=== PATIENT | female | born 1985 ===

== ENCOUNTER → 2021-08-23 | Outpatient (CLI) | payer OTHER | LOC: LAB SHORT 08:30 | PROVIDERS: Family Medicine | DX: Z01.419 Encounter for gynecological examination (general) (routine) without abnormal findings (principal) | CPT/HCPCS: G0145 ==

== ENCOUNTER → 2023-10-02 | Outpatient (CLI) | payer OTHER ==
[2023-10-02 11:13] LABS: Source, Urine Clean Catch
[2023-10-02 13:34] LABS: Appearance, Urine Hazy (Clear); Bilirubin, Urine Neg (Neg); Blood, Urine 3+ (Neg); Color, Urine Yellow (P-Yellow); Glucose Qualitative, Urine Neg (Neg); Ketones, Urine Neg (Neg); Leukocyte Esterase, Urine 3+ (Neg); Nitrite, Urine Neg (Neg); Protein, Urine 1+ (Neg); Urobilinogen, Urine NORM (Normal)
[2023-10-02 14:10] LABS: Bacteria Many /hpf; Squamous Epithelial Cells Mod /hpf (Few); White Blood Cells, Urine 25-50 /hpf (0-5)
[2023-10-02 14:11] LABS: Amorphous Light (0-Heavy); Transitional Epithelial Cells Rare /hpf (0-Rare)
== END | disposition home or self-care (01) ==
LOC: LAB SHORT 11:11 → LAB 11:11
PROVIDERS: Obstetrics & Gynecology
DX: R30.0 Dysuria (principal); Z87.440 Personal history of urinary (tract) infections
CPT/HCPCS: 81001; 87086

== ENCOUNTER → 2023-10-11 | Outpatient (CLI) | payer OTHER | LOC: LAB 12:50 → LAB SHORT 12:50 | DX: N76.0 Acute vaginitis (principal); R30.0 Dysuria ==

== ENCOUNTER → 2024-01-31 | Outpatient (CLI) | payer OTHER ==
[2024-01-31 19:55] LABS: Bacterial Vaginosis PCR Negative (NEGATIVE); Candida Group, PCR NOT DETECTED (NOT DETECT); Candida glabrata-krusei, PCR NOT DETECTED (NOT DETECT)
== END ==
LOC: LAB SHORT 15:44 → LAB 15:44
PROVIDERS: Obstetrics & Gynecology
DX: N76.0 Acute vaginitis (principal)
CPT/HCPCS: 87481; 87661; 87801

== ENCOUNTER 2024-03-19 12:00 | Inpatient (IN) | payer OTHER ==
[~2024-03-19] VITALS: Ht 165.1 cm; Wt 81.6 kg
[2024-03-19] VITALS (9 sets, daily range): BP systolic 112–133; BP diastolic 64–79
[2024-03-19] MEDS ORDERED: Tranexamic Acid 100 ML IV SCH (12:10)
[2024-03-19] MEDS ORDERED: Oxytocin 10 Unit / ML Vial IM PRN (12:10)
[2024-03-19] MEDS ORDERED: Acetaminophen 500 MG Tab PO PRN (12:10)
[2024-03-19] MEDS ORDERED: Misoprostol 200 MCG Tab PR PRN (12:10)
[2024-03-19] MEDS ORDERED: OXYTOCIN/RINGER'S LACTATE 500 ML IV PRN (12:10)
[2024-03-19] MEDS ORDERED: Carboprost Tromethamine 250 MCG/ML 1ML Amp IM PRN (12:10)
[2024-03-19] MEDS ORDERED: Methylergonovine Maleate 0.2MG / ML 1ML Amp IM PRN (12:10)
[2024-03-19] MEDS ORDERED: Misoprostol 200 MCG Tab BC PRN (12:10)
[2024-03-19] MEDS ORDERED: Penicillin G Potassium 5,000,000 UNITS in NS 250 ML IV ONE (12:10)
[2024-03-19] MEDS ORDERED: Lactated Ringer's 1,000 ML IV PRN (12:10)
[2024-03-19] MEDS ORDERED: ePHEDrine Sulfate 50 MG/ML 1ML Injection XX PRN (12:10)
[2024-03-19] MEDS ORDERED: Ondansetron HCl 2 MG / ML 2ML Vial IV PRN ×2 (12:10→15:05)
[2024-03-19] MEDS ORDERED: FentaNYL 2mcg/ml-Bup 0.1% Epd 250 ML EPI PRN (12:10)
[2024-03-19] MEDS ORDERED: Lactated Ringer's 1,000 ML IV SCH ×2 (12:10)
[2024-03-19] MEDS ORDERED: Calcium Carbonate 500 MG Tab Chew PO SCH (12:15)
[2024-03-19] MEDS ORDERED: OXYTOCIN/RINGER'S LACTATE 500 ML IV SCH (12:15)
[2024-03-19 12:55] LABS: BASOPHILS ABSOLUTE AUTO 0.04 K/mm3 (0.00-0.23); BASOPHILS PERCENT AUTO 1 % (0-2); EOSINOPHILS ABSOLUTE AUTO 0.05 K/mm3 (0.00-0.68); EOSINOPHILS PERCENT AUTO 1 % (0-6); Hematocrit 37.4 % (33.0-51.0); Hemoglobin 13.4 g/dL (11.5-16.0); IMMATURE GRAN ABSOLUTE AUTO 0.05 K/mm3 (0.00-0.10); IMMATURE GRAN PERCENT AUTO 1 % (0-1); LYMPHOCYTES ABSOLUTE AUTO 1.78 K/mm3 (0.84-5.20); LYMPHOCYTES PERCENT AUTO 23 % (21-46); MONOCYTES ABSOLUTE AUTO 0.65 K/mm3 (0.16-1.47); MONOCYTES PERCENT AUTO 8 % (4-13); Mean Corpuscular HGB 32.1 pg (26.0-34.0); Mean Corpuscular HGB Conc 35.8 g/dL (31.5-36.5); Mean Corpuscular Volume 90 fL (80-100); Mean Platelet Volume 11.7 fL (9.1-12.4); NEUTROPHILS ABSOLUTE AUTO 5.17 K/mm3 (1.96-9.15); NEUTROPHILS PERCENT AUTO 67 % (41-73); Platelet Count 164 K/mm3 (150-400); RDW Coefficient Variation 12.8 % (11.7-14.2); RDW Standard Deviation 41.8 fL (35.1-46.3); Red Blood Cell Count 4.17 M/mm3 (3.80-5.20); White Blood Cell Count 7.74 K/mm3 (4.00-11.30)
[2024-03-19] MEDS ORDERED: PRENATAL TABLE1 EAC2 PO (13:13)
[2024-03-19] MEDS ORDERED: FentaNYL Citrate 50 MCG/ML 2 ML Injection IV PRN (15:05)
[2024-03-19] MEDS ORDERED: Penicillin G Potassium 2,500,000 UNITS in Dextrose 5% 100 ML IV SCH ×2 (16:00→22:30)
[2024-03-19] MEDS ORDERED: Calcium Carbonate 500 MG Tab Chew PO PRN (21:00)
[2024-03-20] VITALS (76 sets, daily range): BP systolic 94–146; BP diastolic 50–83
[2024-03-20] MEDS ORDERED: Lidocaine HCl 1% 30 ML SDV ONE (08:03)
[2024-03-20] MEDS ORDERED: EpiNEPhrine 1 MG/1 ML 1ML Vial ONE (08:03)
[2024-03-20] MEDS ORDERED: Bupivacaine HCl 0.25% 30 ML Injection ONE (08:03)
--- NOTE | 2024-03-20 13:42 | NUR ---
pt had to have 3rd anesthesiologist come in to get pain relief. dr parks in to replaced epidural after dr narayan dosed initial epidural up multiple times. pump, tubing, connector and all systems changed. kindra is now comfortable with working epidural
[2024-03-20] MEDS ORDERED: Promethazine HCl 25 MG Tab PO ONE (17:10)
[2024-03-20] MEDS ORDERED: DiphenhydrAMINE HCl 50 MG/ML 1ML Vial IV ONE (21:00)
[2024-03-20] MEDS ORDERED: Famotidine 10 MG/ML 2ML Vial IV ONE (21:05)
[2024-03-20] MEDS ORDERED: Azithromycin 500 MG in NS 250 ML IV SCH ×2 (23:10→23:20)
[2024-03-20] MEDS ORDERED: Lactated Ringer's 1,000 ML IV SCH (23:10)
[2024-03-20] MEDS ORDERED: CeFAZolin Sodium 2,000 MG in NS 100 ML IV SCH (23:10)
[2024-03-20] MEDS ORDERED: Metoclopramide HCl 5MG / ML 2ML Vial IV SCH (23:15)
[2024-03-20] MEDS ORDERED: Citric Acid/Sodium Citrate 30 ML BTL PO SCH (23:15)
[2024-03-20] MEDS ORDERED: FentaNYL Citrate 50 MCG/ML 2 ML Injection ONE (23:31)
[2024-03-20] MEDS ORDERED: Lidocaine 2%-Epineph 1:200000 20 ML SDV ONE (23:31)
[2024-03-20] MEDS ORDERED: Morphine Sulfate/PF 1 MG/ML 10MLVIAL ONE (23:31)
[2024-03-21] VITALS (10 sets, daily range): BP systolic 94–130; BP diastolic 56–63
--- NOTE | 2024-03-21 00:22 | NUR ---
03/21/24 0022 Akash Long NO CORD SENT PER DR. FAIRCHILD. CORD BLOOD SENT WITH BABY RN
[2024-03-21] MEDS ORDERED: Ketorolac Tromethamine 30mg Vial ONE (00:49)
[2024-03-21] MEDS ORDERED: Oxytocin 10 Unit / ML Vial ONE (00:49)
[2024-03-21] MEDS ORDERED: Ondansetron HCl 2 MG / ML 2ML Vial ONE (00:49)
[2024-03-21] MEDS ORDERED: Dexamethasone Sod Phos 10 MG/ML 1ML VIAL ONE (00:49)
[2024-03-21] MEDS ORDERED: Polyethylene Glycol 3350 17 gm PO PRN (00:50)
[2024-03-21] MEDS ORDERED: OxyCODONE HCL 5 MG TAB PO PRN ×2 (00:50→00:55)
[2024-03-21] MEDS ORDERED: Ondansetron HCl 2 MG / ML 2ML Vial IV PRN (00:55)
[2024-03-21] MEDS ORDERED: Magnesium Hydroxide Conc 10 ML UDC PO PRN (00:55)
[2024-03-21] MEDS ORDERED: OXYTOCIN/RINGER'S LACTATE 16.66666666 ML IV SCH (00:55)
[2024-03-21] MEDS ORDERED: Lanolin Cream TOP PRN (00:55)
[2024-03-21] MEDS ORDERED: Simethicone 80 MG Chew PO PRN (01:00)
[2024-03-21] MEDS ORDERED: Promethazine HCl 25 MG Tab PO PRN (01:00)
[2024-03-21] MEDS ORDERED: Rho(D) Immune Globulin 300 MCG / SYR IM ONE (01:00)
[2024-03-21] MEDS ORDERED: Ketorolac Tromethamine 30mg Vial IV SCH (01:00)
[2024-03-21] MEDS ORDERED: Measles/Mumps/Rubella Vaccine 0.5 ML Vial SC ONE (01:00)
[2024-03-21] MEDS ORDERED: Acetaminophen 500 MG Tab PO PRN (01:00)
[2024-03-21] MEDS ORDERED: Witch Hazel/Glycerin PADS TOP PRN (01:05)
[2024-03-21] MEDS ORDERED: FLU VACC TS2024-25(6MOS UP)/PF 45 MCG/0.5 ML SYRINGE IM ONE (01:05)
[2024-03-21] MEDS ORDERED: Benzocaine Topical Anesthetic Spray 60GM TOP PRN (01:05)
--- NOTE | 2024-03-21 02:34 | NUR ---
FUNDAL RUB AT 0145 AND 0215 SKIPPED FOR MATERNAL BONDING
[2024-03-21 06:38] LABS: BASOPHILS ABSOLUTE AUTO 0.04 K/mm3 (0.00-0.23); BASOPHILS PERCENT AUTO 0 % (0-2); EOSINOPHILS ABSOLUTE AUTO 0.15 K/mm3 (0.00-0.68); EOSINOPHILS PERCENT AUTO 1 % (0-6); Hemoglobin 10.2 g/dL (11.5-16.0); IMMATURE GRAN ABSOLUTE AUTO 0.13 K/mm3 (0.00-0.10); IMMATURE GRAN PERCENT AUTO 1 % (0-1); LYMPHOCYTES ABSOLUTE AUTO 0.85 K/mm3 (0.84-5.20); LYMPHOCYTES PERCENT AUTO 5 % (21-46); MONOCYTES ABSOLUTE AUTO 0.94 K/mm3 (0.16-1.47); MONOCYTES PERCENT AUTO 5 % (4-13); Mean Corpuscular HGB 31.8 pg (26.0-34.0); Mean Corpuscular HGB Conc 35.2 g/dL (31.5-36.5); Mean Corpuscular Volume 90 fL (80-100); Mean Platelet Volume 11.7 fL (9.1-12.4); NEUTROPHILS ABSOLUTE AUTO 16.16 K/mm3 (1.96-9.15); NEUTROPHILS PERCENT AUTO 89 % (41-73); Platelet Count 148 K/mm3 (150-400); RDW Coefficient Variation 12.8 % (11.7-14.2); RDW Standard Deviation 42.5 fL (35.1-46.3); Red Blood Cell Count 3.21 M/mm3 (3.80-5.20); White Blood Cell Count 18.27 K/mm3 (4.00-11.30)
[2024-03-21] MEDS ORDERED: Ibuprofen 400 MG Tab PO SCH (08:00)
[2024-03-21] MEDS ORDERED: Prenatal Vit/FE Fumarate/FA 1 Tab PO SCH (09:00)
[2024-03-21] MEDS ORDERED: Loratadine 10 MG Tab PO ONE (12:20)
[2024-03-22 00:49] VITALS: BP 111/57
[2024-03-22 05:28] VITALS: BP 95/52
[2024-03-22 09:09] VITALS: BP 122/60
[2024-03-22] MEDS ORDERED: OXYC5 PO (11:40)
[2024-03-22] MEDS ORDERED: ACET500 PO (11:40)
[2024-03-22] MEDS ORDERED: IBUP800 PO (11:40)
[2024-03-22 11:47] VITALS: BP 128/74
== END 2024-03-22 12:15 | disposition home or self-care (01) | DRG 788 ==
LOC: OBS 12:00 → BC 12:05 → OBS 12:12 → BC 12:13
PROVIDERS: Family Medicine; ADMIT Obstetrics & Gynecology
PROC: 10D00Z1 Extraction of Products of Conception, Low, Open Approach (ICD-10-PCS; principal; 2024-03-21)
PROC: 0U7C0ZZ Dilation of Cervix, Open Approach (ICD-10-PCS; 2024-03-21)
DX: O41.03X0 Oligohydramnios, third trimester, not applicable or unspecified (principal); Z3A.40 40 weeks gestation of pregnancy; Z37.0 Single live birth; O99.824 Streptococcus B carrier state complicating childbirth; O64.0XX0 Obstructed labor due to incomplete rotation of fetal head, not applicable or unspecified; O99.214 Obesity complicating childbirth; O48.0 Post-term pregnancy
CPT/HCPCS: 36415; 51702; 59200; 85025; 86850; 86900; 86901; 86923; A9270; J0171; J0456; J0690; J1100; J1200; J1885; J2274; J2405; J2540; J2590; J3010; J7050; J7120

== ENCOUNTER 2025-03-12 16:32 | Emergency (ER) | payer OTHER ==
[~2025-03-12] VITALS: Ht 165.1 cm; Wt 63.5 kg
[~2025-03-12 16:32] MED LIST: ACET500 PO; IBUP800 PO; OXYC5 PO; PRENATAL TABLE1 EAC2 PO
[2025-03-12 16:40] VITALS: BP 128/92
[2025-03-12 17:06] LABS: BASOPHILS ABSOLUTE AUTO 0.02 K/mm3 (0.00-0.23); BASOPHILS PERCENT AUTO 0 % (0-2); EOSINOPHILS ABSOLUTE AUTO 0.08 K/mm3 (0.00-0.68); EOSINOPHILS PERCENT AUTO 1 % (0-6); Hematocrit 41.1 % (33.0-51.0); Hemoglobin 14.1 g/dL (11.5-16.0); IMMATURE GRAN ABSOLUTE AUTO 0.02 K/mm3 (0.00-0.10); IMMATURE GRAN PERCENT AUTO 0 % (0-1); LYMPHOCYTES ABSOLUTE AUTO 2.41 K/mm3 (0.84-5.20); LYMPHOCYTES PERCENT AUTO 27 % (21-46); MONOCYTES ABSOLUTE AUTO 0.63 K/mm3 (0.16-1.47); MONOCYTES PERCENT AUTO 7 % (4-13); Mean Corpuscular HGB Conc 34.3 g/dL (31.5-36.5); Mean Corpuscular Volume 89 fL (80-100); NEUTROPHILS ABSOLUTE AUTO 5.64 K/mm3 (1.96-9.15); NEUTROPHILS PERCENT AUTO 64 % (41-73); NRBC ABSOLUTE 0.00 K/mm3 (0.00-0.02); NRBC Auto 0.0 /100 WBC (0.0-0.2); Platelet Count 235 K/mm3 (150-400); RDW Coefficient Variation 12.4 % (11.7-14.2); RDW Standard Deviation 40.0 fL (35.1-46.3)
[2025-03-12 17:23] LABS: Alanine Aminotransfer (ALT/SGP 23.0 U/L (12-78); Albumin, Blood 4.4 g/dL (3.4-5.0); Albumin/Globulin Ratio 1.3 (0.8-1.8); Anion Gap 10.0 mmol/L (3-11); Aspartate Aminotrans (AST/SGOT 16.0 U/L (12-37); Bilirubin, Total 0.3 mg/dL (0.1-1.0); Blood Urea Nitrogen 14.0 mg/dL (8-24); CO2, Blood 26.0 mmol/L (21-32); Calcium, Blood 9.8 mg/dL (8.5-10.1); Chloride, Blood 102.0 mmol/L (98-108); Creatinine, Blood 0.52 mg/dL (0.40-1.00); Globulin, Blood 3.5 g/dL (2.2-4.0); Glucose, Blood 120.0 mg/dL (70-99); Potassium, Blood 3.8 mmol/L (3.5-5.5); Sodium, Blood 134.0 mmol/L (136-145); Total Protein, Blood 7.9 g/dL (6.4-8.2)
[2025-03-12 18:09] LABS: Source, Urine Clean Catch
[2025-03-12] MEDS ORDERED: Ketorolac Tromethamine 15mg Vial IV ONE (18:30)
[2025-03-12 18:35] LABS: Bilirubin, Urine Neg (Neg); Glucose Qualitative, Urine Neg (Neg); Ketones, Urine 2+ (Neg); Leukocyte Esterase, Urine Neg (Neg); Protein, Urine Neg (Neg); Specific Gravity, Urine 1.010 (1.003-1.022); Urobilinogen, Urine NORM (Normal)
[2025-03-12 18:41] LABS: Color, Urine Pale Yellow (P-Yellow)
== END 2025-03-12 22:22 | disposition home or self-care (01) ==
LOC: ER 16:32
PROVIDERS: Emergency Medicine
DX: R10.A2 Flank pain, left side (principal); Z79.899 Other long term (current) drug therapy
CPT/HCPCS: 74176; 76856; 80053; 81003; 81025; 83690; 85025; 96374; 99284-25; J1885